=== PATIENT | female | born 1940 | race Caucasian/White ===

== ENCOUNTER 2019-10-05 00:39 | Emergency (ER) | payer MEDICARE ==
[2019-10-05] MEDS ORDERED: OXYMETAZOLINE HCL 0.05% NASAL SPRAY 15 ML BOTTLE NASL ONE (01:08)
[2019-10-05] MEDS ORDERED: TRANEXAMIC ACID INJ/PF 1,000 MG/10 ML SDV TOP PRN (02:29)
--- NOTE | 2019-10-05 02:53 | ER Document Report ---
ED General - General Chief Complaint: Nose Bleed Stated Complaint: NOSEBLEED Time Seen by Provider: 10/05/19 01:08 Primary Care Provider: MAIKEL BAEZ DO [ASSOCIATE] - 10/06/19 TRAVEL OUTSIDE OF THE [place] IN LAST 30 DAYS: No - HPI Notes: Patient is an 79-year-old female with history of COPD and hypertension who presents by EMS for nosebleed. Patient was given TXA topically which did improve her nosebleed at the time. Patient states that the bleeding was pouring into the back of her throat. She is not on any blood thinning medications. Denies any injury. She is otherwise feeling well and has been able to eat and drink without difficulty. She is urinating normally. Denies any headache, fever, head injury, neck pain, changes in vision/speech/mentation/hearing, URI, sore throat, chest pain, palpitations, syncope, cough, shortness of breath, wheeze, dyspnea, abdominal pain, nausea/vomiting/diarrhea, urinary retention, dysuria, hematuria, loss of control of bowel or bladder, numbness/tingling, muscle paralysis/weakness, or rash. - Related Data Allergies/Adverse Reactions: ciprofloxacin [From Cipro] Allergy (Verified 10/05/19 00:43) Past Medical History - Social History Smoking Status: Never Smoker Chew tobacco use (# tins/day): No Frequency of alcohol use: None Drug Abuse: None Family History: Reviewed & Not Pertinent Patient has suicidal ideation: No Patient has homicidal ideation: No - Past Medical History Cardiac Medical History: Reports: Hx Hypercholesterolemia, Hx Hypertension Pulmonary Medical History: Reports: Hx COPD Past Surgical History: Reports: Hx Appendectomy, Hx Bowel Surgery, Hx Cholec ystectomy, Hx Hysterectomy, Hx Orthopedic Surgery, Hx Thyroid Surgery, Hx Tonsillectomy Review of Systems - Review of Systems -: Yes All other systems reviewed and negative Physical Exam - Vital signs Vitals: Temp Pulse Resp BP Pulse Ox 97.8 F 88 16 144/61 H 100 10/05/19 00:43 10/05/19 00:43 10/05/19 00:43 10/05/19 00:43 10/05/19 00:43 - Notes Notes: PHYSICAL EXAMINATION: GENERAL: Well-appearing, well-nourished and in no acute distress. HEAD: Atraumatic, normocephalic. EYES: Pupils equal round and reactive to light, extraocular movements intact, sclera anicteric, conjunctiva are normal. ENT: EAC clear b/l. TM's intact b/l without erythema, fluid, or perforation. Rt nare has clot formation. Left nare clear. Scant blood to the oropharynx. No tonsilar hypertrophy or erythema. Moist mucous membranes. No sinus tenderness. NECK: Normal range of motion, supple without lymphadenopathy LUNGS: Breath sounds clear to auscultation bilaterally and equal. No wheezes rales or rhonchi. HEART: Regular rate and rhythm without murmurs, rubs, gallops. NEUROLOGICAL: Cranial nerves grossly intact. Normal speech, normal gait. Normal sensory, motor exams PSYCH: Normal mood, normal affect. SKIN: Warm, Dry, normal turgor, no rashes or lesions noted. Course - Re-evaluation Re-evalutation: 10/05/19 02:48 Patient is afebrile, well-hydrated, 79-year-old female who presents with epistasis to the right nare. Vitals are acceptable. PE is otherwise unremarkable. Patient is nontoxic-appearing and is able to tolerate p.o. without difficulty. The clot was removed and patient immediately started having bleeding in the back of her throat and out of her right nare. She was constantly spitting up blood. We tried Afrin with gauze packing which did not improve her bleeding. We then soaked the 7.5 Rhino Rocket with TXA and applied to the right nare successfully without any complications. Patient tolerated the procedure well. After about 15 minutes patient has had resolution of the bleeding to the oropharynx and she is feeling much better. She is no longer spitting out blood. We will continue to monitor. And otherwise have low suspicion for any other systemic or emergent condition at this time. The Rhino Rocket will remain in place and patient will contact ENT tomorrow to schedule follow-up appointment. She is to return to the ED with any other worsening/concerning symptoms. Patient is in agreement. 10/05/19 04:16 Pt is feeling well w/o any significant bleeding since placement. She is to call ENT when they open, return if needed. Reviewed with Dr. Cox who is in agreement with dispo/plan. - Vital Signs Vital signs: Temp Pulse Resp BP Pulse Ox 97.8 F 88 16 144/61 H 100 10/05/19 00:43 10/05/19 00:43 10/05/19 00:43 10/05/19 00:43 10/05/19 00:43 Procedures - Nosebleed Procedure Right Location: Anterior - single nare at this time Supplies used: Rhinorocket - with TXA Discharge - Discharge Clinical Impression: Epistaxis Condition: Stable Disposition: HOME, SELF-CARE Instructions: Nosebleed Instructions ([facility]) Additional Instructions: Maintain adequate fluid intake Leave Rocket in place F/u: with your PCM in 3-5 days for a recheck Call ENT in the morning to schedule an appointment for follow-up Return to the ED with any fever, dizziness, tinnitus, headaches, worsening pain, chest pain, palpitations, syncope, neck pain/stiffness, shortness of breath, wheezing, drooling, trouble swallowing/breathing, abdominal pain, n/v/d, rash, or worsening/concerning symptoms otherwise. Forms: Elevated Blood Pressure Referrals: MAIKEL BAEZ DO [ASSOCIATE] - 10/06/19
[2019-10-05 05:52] VITALS: BP 157/59
== END 2019-10-05 04:32 | disposition home or self-care (01) ==
LOC: ER 00:39
DX: R04.0 Epistaxis (principal); J44.9 Chronic obstructive pulmonary disease, unspecified; I10 Essential (primary) hypertension; Z88.1 Allergy status to other antibiotic agents
CPT/HCPCS: 30901; A9270; 99283; J3490

== ENCOUNTER → 2019-11-08 | Outpatient (CLI) | payer MEDICARE ==
--- NOTE | 2019-11-08 16:48 | RADIOLOGY REPORT (SQ) ---
EXAM DESCRIPTION: CAROTID DOPPLER COMPLETED DATE/TIME: 11/08/2019 4:15 pm REASON FOR STUDY: BRUIT R09.89 OTH SYMPTOMS AND SIGNS INVOLVING THE CIRC AND RESP SY COMPARISON: None. TECHNIQUE: Grayscale ultrasound, Doppler velocity and spectra, and color Doppler images acquired of the extra-cranial carotid and vertebral arteries. Images stored on PACS. LIMITATIONS: None. FINDINGS: RIGHT CAROTID CCA Velocities: Within normal limits. ICA Velocities Peak systolic 161 cm/s. End diastolic 55 cm/s. Proximal ICA/CCA peak systolic ratio 2.47. There is complex calcified plaque in the carotid bulb and proximal ICA. LEFT CAROTID CCA Velocities: Within normal limits. ICA Velocities Peak systolic 116 cm/s. End diastolic 33 cm/s. Proximal ICA/CCA peak systolic ratio 1.34. Complex plaque in the carotid bulb and proximal ICA. VERTEBRAL ARTERIES: Antegrade flow. Normal waveforms. SUBCLAVIAN ARTERIES: No finding. OTHER: No other significant finding. IMPRESSION: 50 to 69% stenosis in the right internal carotid artery. No hemodynamically significant stenosis on the left. COMMENT: Quality ID #[id number]: Velocity criteria are extrapolated from the diameter data as defined by t he Society of Radiologists in Ultrasound Consensus Conference. Radiology 2003: 229; 340-346. TECHNICAL DOCUMENTATION: JOB ID: [id number] [employer]- All Rights Reserved Reading location - IP/workstation name: [email or web address]
== END ==
LOC: SP 10:39
PROVIDERS: ATTEND Physician Assistant
DX: I65.21 Occlusion and stenosis of right carotid artery (principal); R09.89 Other specified symptoms and signs involving the circulatory and respiratory systems
CPT/HCPCS: 93880

== ENCOUNTER → 2020-02-19 | Outpatient (CLI) | payer MEDICARE ==
[2020-02-19 17:08] LABS: ALBUMIN 4.4 g/dL (3.5-5.0); ALKALINE PHOSPHATASE 129 U/L (38-126); ANION GAP 12 (5-19); ASPARTATE AMINO TRANSFERASE 24 U/L (14-36); BILIRUBIN,TOTAL 0.4 mg/dL (0.2-1.3); BLOOD UREA NITROGEN 13 mg/dL (7-20); CALCIUM 9.5 mg/dL (8.4-10.2); CARBON DIOXIDE 21 mmol/L (22-30); CHLORIDE 105 mmol/L (98-107); GLUCOSE 101 mg/dL (75-110); POTASSIUM 4.7 mmol/L (3.6-5.0); TOTAL PROTEIN 7.2 g/dL (6.3-8.2); TRIGLYCERIDES 300 mg/dL (<150)
[2020-02-19 17:19] LABS: DIRECT LDL 306 mg/dL (<100)
[2020-02-19 17:23] LABS: CHOLESTEROL 419.79 mg/dL (0-200)
== END ==
LOC: OD 15:37
PROVIDERS: ATTEND Physician Assistant
DX: E78.00 Pure hypercholesterolemia, unspecified (principal); I10 Essential (primary) hypertension; Z79.899 Other long term (current) drug therapy
CPT/HCPCS: 36415; 80048; 80061; 80076

== ENCOUNTER 2020-06-10 09:29 | Emergency (ER) | payer MEDICARE ==
--- NOTE | 2020-06-10 10:32 | RADIOLOGY REPORT (SQ) ---
EXAM DESCRIPTION: CHEST SINGLE VIEW IMAGES COMPLETED DATE/TIME: 06/10/2020 10:12 am REASON FOR STUDY: SOB COMPARISON: None. EXAM PARAMETERS: NUMBER OF VIEWS: One view. TECHNIQUE: Single frontal radiographic view of the chest acquired. RADIATION DOSE: NA LIMITATIONS: None. FINDINGS: LUNGS AND PLEURA: No opacities, masses or pneumothorax. No pleural effusion. MEDIASTINUM AND HILAR STRUCTURES: No masses. Contour normal. HEART AND VASCULAR STRUCTURES: Heart normal in size. Vascular calcification. BONES: No acute findings. Subchondral cystic change at the right proximal humerus. HARDWARE: None in the chest. OTHER: No other significant finding. IMPRESSION: NO ACUTE RADIOGRAPHIC FINDING IN THE CHEST. TECHNICAL DOCUMENTATION: JOB ID: [id number] 2010 [employer]- All Rights Reserved Reading location - IP/workstation name: [email or web address]
[2020-06-10 10:58] LABS: ABSOLUTE BASOPHILS # (AUTO) 0.1 10^3/uL (0.0-0.2); ABSOLUTE EOSINOPHILS # (AUTO) 0.1 10^3/uL (0.0-0.6); ABSOLUTE LYMPHOCYTES (AUTO) 1.2 10^3/uL (0.5-4.7); ABSOLUTE MONOCYTES (AUTO) 0.9 10^3/uL (0.1-1.4); ABSOLUTE NEUT (AUTO) 9.1 10^3/uL (1.7-8.2); BASOPHILS % (AUTO) 0.8 % (0-2); EOSINOPHILS % (AUTO) 0.7 % (0-6); HEMATOCRIT 32.1 % (36.0-47.0); HEMOGLOBIN 10.7 g/dL (12.0-15.5); LYMPHOCYTES % (AUTO) 10.8 % (13-45); MEAN CORPUSCULAR HGB CONC 33.3 g/dL (32.0-36.0); MEAN CORPUSCULAR VOLUME 84 fl (80-97); MONOCYTES % (AUTO) 7.7 % (3-13); PLATELET COUNT 227 10^3/uL (150-450); RED BLOOD COUNT 3.82 10^6/uL (3.72-5.28); RED CELL DISTRIBUTION WIDTH 14.3 % (11.5-14.0); TOTAL CELLS COUNTED % (AUTO) 100 %; WHITE BLOOD COUNT 11.4 10^3/uL (4.0-10.5)
[2020-06-10 11:20] LABS: ALBUMIN 4.3 g/dL (3.5-5.0); ALKALINE PHOSPHATASE 124 U/L (38-126); ANION GAP 13 (5-19); ASPARTATE AMINO TRANSFERASE 26 U/L (14-36); BILIRUBIN,DIRECT 0.3 mg/dL (0.0-0.4); BILIRUBIN,TOTAL 0.8 mg/dL (0.2-1.3); BLOOD UREA NITROGEN 17 mg/dL (7-20); CALCIUM 9.8 mg/dL (8.4-10.2); CARBON DIOXIDE 21 mmol/L (22-30); CHLORIDE 104 mmol/L (98-107); CREATINE KINASE 69 U/L (30-135); GLUCOSE 124 mg/dL (75-110); TOTAL PROTEIN 7.6 g/dL (6.3-8.2)
[2020-06-10 11:32] LABS: CREATINE KINASE MB < 0.22 ng/mL (<4.55); TROPONIN I < 0.012 ng/mL
--- NOTE | 2020-06-10 14:48 | ER Document Report ---
Entered by KARLEY LEAL SCRIBE 06/10/20 1216 Acting as scribe for:PEPE MCKEON MD ED General - General Chief Complaint: Shortness Of Breath Stated Complaint: SHORTNESS OF BREATH/FEVER Time Seen by Provider: 06/10/20 11:13 Primary Care Provider: TEDDY CRISTINA DO [Primary Care Provider] - Follow up as needed Information source: Patient Notes: This 79 year old female patient presents to the emergency department today with a subjective fever for the past x4 days. Patient states she began to have chest pain x2 days ago and began sweating through her clothes yesterday. Patient states she now has general body aches and a cough. Patient reports history of COPD, HTN, high cholesterol, and borderline DM. Patient reports history of Asthma, uses her nebulizer every morning and chronic constipation, which she takes MiraLax for everyday. Patient reports loss of taste and denies throat pain or history of heart attacks. Patient states she does not have any known covid exposure and is social distancing. TRAVEL OUTSIDE OF THE [place] IN LAST 30 DAYS: No - Related Data Allergies/Adverse Reactions: adhesive Allergy (Intermediate, Verified 10/13/19 10:58) RASH AND BLISTERING WITH CONTACT. ciprofloxacin [From Cipro] Allergy (Verified 10/13/19 10:58) Past Medical History - General Information source: Patient - Social History Smoking Status: Never Smoker Cigarette use (# per day): No Family History: Malignancy, CAD, COPD, Hyperlipidemia, Reviewed & Not Pertinent - Past Medical History Cardiac Medical History: Reports: Hx Congestive Heart Failure, Hx Hypercholesterolemia, Hx Hypertension, Hx Heart Murmur Denies: Hx Heart Attack Pulmonary Medical History: Reports: Hx Asthma - MEDICATED/LAST HOSPITALIZATION 11/2016 PNEUMONIA/CHF, Hx Bronchitis, Hx COPD, Hx Pneumonia Endocrine Medical History: Reports: Hx Diabetes Mellitus Type 2 - When necessary insulin for steroid induced hypoglycemia. GI Medical History: Reports: Hx Diverticulitis, Hx Gastroesophageal Reflux Disease, Hx Irritable Bowel Musculoskeletal Medical History: Reports Hx Arthritis Psychiatric Medical History: Reports: Hx Depression - Some appropriate transient depression after her son 2 years ago. Past Surgical History: Reports: Hx Abdominal Surgery - 3 ex-laops with lysis of adhesions for SBO, Hx Appendectomy, Hx Bowel Surgery, Hx Cholecystectomy, Hx Gynecologic Surgery - hysterectomy, Hx Hysterectomy, Hx Orthopedic Surgery - Right hand, Hx Thyroid Surgery, Hx Tonsillectomy, Other - Partial colectomy, Exploratory laparoscopy with lysis of adhesions 3 - Immunizations Hx Diphtheria, Pertussis, Tetanus Vaccination: Yes Hx Pneumococcal Vaccination: 10/18/08 Review of Systems - Review of Systems Constitutional: See HPI, Diaphoresis, Fever, Other - body aches EENT: See HPI, Other - loss of taste. denies: Throat pain Cardiovascular: See HPI, Chest pain Respiratory: See HPI, Cough Gastrointestinal: No symptoms reported Genitourinary: No symptoms reported Female Genitourinary: No symptoms reported Musculoskeletal: No symptoms reported Skin: No symptoms reported Hematologic/Lymphatic: No symptoms reported Neurological/Psychological: No symptoms reported -: Yes All other systems reviewed and negative Physical Exam - Vital signs Vitals: Temp Pulse Resp BP Pulse Ox 99.4 F 110 H 20 129/49 H 99 06/10/20 09:38 06/10/20 09:38 06/10/20 09:38 06/10/20 09:38 06/10/20 09:38 - General General appearance: Appears well, Alert - HEENT Head: Normocephalic, Atraumatic Eyes: Normal Extraocular movements intact: Yes Pupils: PERRL Neck: Supple - Respiratory Respiratory status: No respiratory distress Chest status: Nontender Breath sounds: Normal Chest palpation: Normal - Cardiovascular Rhythm: Regular Heart sounds: Normal auscultation, S1 appreciated, S2 appreciated Murmur: No - Abdominal Inspection: Normal, Other - Soft Distension: No distension Bowel sounds: Normal Tenderness: Nontender - Extremities General upper extremity: Normal inspection. No: Edema General lower extremity: Normal inspection. No: Edema - Neurological Neuro grossly intact: Yes Cognition: Normal Orientation: AAOx4 Speech: Normal - Psychological Associated symptoms: Normal affect, Normal mood - Skin Skin Temperature: Warm Skin Moisture: Dry Skin Color: Normal Course - Re-evaluation Re-evalutation: 06/10/20 14:41 Patient is resting comfortably not showing any signs of distress at this time. Patient does admit that she still have myalgias at this time. I recommended to her to take Tylenol and if Tylenol was not effective that she should take [id number] ibuprofen at 600 mg 3 times a day if needed with meals. 06/10/20 14:44 Inasmuch as patient has myalgias and fever over the past week and and loss of taste the symptoms can be associated with COVID-19 virus therefore patient is been tested prior to discharge from the ED today. Patient understands to quarantine until she gets further instructions based on her lab test results. - Vital Signs Vital signs: Temp Pulse Resp BP Pulse Ox 99.4 F 110 H 24 H 112/54 L 96 06/10/20 09:38 06/10/20 09:38 06/10/20 13:00 06/10/20 13:00 06/10/20 13:00 06/10/20 14:41 Vital signs are stable no acute process pulse ox 96% - Laboratory Result Diagrams: 06/10/20 10:40 06/10/20 10:40 Laboratory results interpreted by me: 06/10/20 06/10/20 10:40 10:40 WBC 11.4 H Hgb 10.7 L Hct 32.1 L RDW 14.3 H Lymph % (Auto) 10.8 L Absolute Neuts (auto) 9.1 H Seg Neutrophils % 80.0 H Carbon Dioxide 21 L Glucose 124 H 06/10/20 14:42 No insignificant abnormalities noted on the laboratory survey. Patient's troponin has been negative at 0.012 flat across x2 over several hours. - Diagnostic Test Radiology reviewed: Image reviewed, Reports reviewed Radiology results interpreted by me: 06/10/20 14:43 Chest x-ray shows no acute process no infiltrate - EKG Interpretation by Me Additional EKG results interpreted by me: 06/10/20 14:43 Twelve-lead EKG shows a normal sinus rhythm rate of 88 left anterior fascicular block and LVH noted by voltage criteria. No acute STEMI. Discharge - Discharge Clinical Impression: Epidemic myalgia, Suspected COVID-19 virus infection, Chest pain, COPD (chronic obstructive pulmonary disease), Post viral syndrome Condition: Stable Disposition: HOME, SELF-CARE Instructions: Viral Syndrome ([facility]), Fever ([facility]), Acetaminophen, COVID-19 Guidance for Persons Under Investigation Additional Instructions: Viral Syndrome The physician has diagnosed a viral infection. Viruses not only cause "colds," but can cause many different symptoms including generalized aching, fever, headache, cough, diarrhea, nausea, vomiting, and fatigue. The treatment, for the most part, is simply relief of symptoms. This means that antibiotics are usually not given. Rest, fluids, pain medications and, occasionally, medication for the specific symptoms that are most bothersome will be prescribed. Use good handwashing to avoid passing the virus to others. Shared toys should be cleaned with disinfectant. Clean the toilets, sinks, and counter surfaces in bathrooms. Launder clothing in hot water. Contact the physician if you develop any new or unusual symptoms such as severe headache, stiff neck, high fever, chest pain, productive cough, or shortness of breath. You should be rechecked if you don't see marked improvement within seven to 10 days. Consider ibuprofen at 600 mg 3 times a day with meals if needed for pain myalgias fever or chills. Continue your same other medications you are taking for your other illnesses including a COPD with treatments. Await test results from the COVID testing done today and continue to quarantine until further instructions. Referrals: TEDDY CRISTINA, DO [Primary Care Provider] - Follow up as needed I personally performed the services described in the documentation, reviewed and edited the documentation which was dictated to the scribe in my presence, and it accurately records my words and actions.
[2020-06-10 15:04] VITALS: BP 125/50
--- NOTE | 2020-06-10 19:41 | EKG REPORT ---
SEVERITY:- ABNORMAL ECG - SINUS RHYTHM LEFT ANTERIOR FASCICULAR BLOCK LVH WITH SECONDARY REPOLARIZATION ABNORMALITY : Confirmed by: Zulay Rodas MD 10-Jun-2020 19:40:58
== END 2020-06-10 15:05 | disposition home or self-care (01) ==
LOC: ER 09:29
DX: J44.9 Chronic obstructive pulmonary disease, unspecified (principal); M79.10 Myalgia, unspecified site; R07.9 Chest pain, unspecified; B34.9 Viral infection, unspecified; R06.02 Shortness of breath; R50.9 Fever, unspecified; R05 Cough; R43.9 Unspecified disturbances of smell and taste; E78.00 Pure hypercholesterolemia, unspecified; J45.909 Unspecified asthma, uncomplicated; Z88.1 Allergy status to other antibiotic agents; I11.0 Hypertensive heart disease with heart failure; I50.9 Heart failure, unspecified; Z20.828 Contact with and (suspected) exposure to other viral communicable diseases
CPT/HCPCS: 93005; 99285; 36415; 82553; 82550; 85025; 80053; 84484; 71045; 93010; U0003; C9803; 87635

== ENCOUNTER 2020-06-16 23:14 | Inpatient (IN) | payer MEDICARE ==
[2020-06-16] MEDS ORDERED: PROMETHAZINE HCL INJ 25 MG/1 ML VIAL IV ONE (23:50)
[2020-06-16] MEDS ORDERED: MORPHINE SULFATE 10 MG/ML INJ IV ONE (23:50)
[2020-06-16] MEDS ORDERED: NORMAL SALINE 1000 ML 1,000 ML IV ONE (23:51)
--- NOTE | 2020-06-16 23:57 | ER Document Report ---
ED GI/ - General Chief Complaint: Abdominal Pain Stated Complaint: ABD PAIN Time Seen by Provider: 06/16/20 23:43 Primary Care Provider: TEDDY CRISTINA DO [Primary Care Provider] - Follow up as needed Mode of Arrival: Medic Information source: Patient, Emergency Med Personnel Notes: 79-year-old female arrives by EMS after having acute onset this afternoon of vomiting left lower and left upper abdominal pain quite severe 8-10 out of 10. She has partially eaten food in her vomitus. She last ate around 1600. Patient denies any diarrhea. Denies any bowel movement today. Her last bowel movement was yesterday. She has had at least 5 surgeries for SBO at her last with with Dr. Shabazz at [facility]. This was an late 2018. Her abdomen is mildly distended. Her abdomen also has multiple surgical scars. Patient had a negative coronavirus COVID-19 test done on Wednesday 6 days ago because she was running fever and this was negative. TRAVEL OUTSIDE OF THE [place] IN LAST 30 DAYS: No - HPI Patient complains to provider of: Abdominal pain, Vomiting Onset: This afternoon Timing/Duration: Sudden, Persistent, Worse Quality of pain: Achy Severity at maximum: Severe Severity in ED: Severe Pain Level: 4 - Related Data Allergies/Adverse Reactions: adhesive Allergy (Intermediate, Verified 10/13/19 10:58) RASH AND BLISTERING WITH CONTACT. ciprofloxacin [From Cipro] Allergy (Verified 10/13/19 10:58) Past Medical History - General Information source: Patient - Social History Smoking Status: Never Smoker Cigarette use (# per day): No Chew tobacco use (# tins/day): No Smoking Education Provided: No Frequency of alcohol use: None Drug Abuse: None Lives with: Family Family History: Malignancy, CAD, COPD, Hyperlipidemia, Reviewed & Not Pertinent Patient has suicidal ideation: No Patient has homicidal ideation: No - Past Medical History Cardiac Medical History: Reports: Hx Congestive Heart Failure, Hx Hypercholesterolemia, Hx Hypertension, Hx Heart Murmur Denies: Hx Heart Attack Pulmonary Medical History: Reports: Hx Asthma - MEDICATED/LAST HOSPITALIZATION 11/2016 PNEUMONIA/CHF, Hx Bronchitis, Hx COPD, Hx Pneumonia Denies: Hx Tuberculosis Neurological Medical History: Denies: Hx Cerebrovascular Accident, Hx Seizures Endocrine Medical History: Reports: Hx Diabetes Mellitus Type 2 - When necessary insulin for steroid induced hypoglycemia. Renal/ Medical History: Denies: Hx Peritoneal Dialysis GI Medical History: Reports: Hx Diverticulitis, Hx Gastroesophageal Reflux Disease, Hx Irritable Bowel. Denies: Hx Cirrhosis, Hx Hepatitis, Hx Hiatal Hernia, Hx Ulcer - HX OF DIVERTICULITIS/IBS Musculoskeletal Medical History: Reports Hx Arthritis Psychiatric Medical History: Reports: Hx Depression - Some appropriate transient depression after her son 2 years ago. Denies: Hx Anxiety - Patient denies history of anxiety Infectious Medical History: Denies: Hx Hepatitis Past Surgical History: Reports: Hx Abdominal Surgery - 3 ex-laops with lysis of adhesions for SBO, Hx Appendectomy, Hx Bowel Surgery, Hx Cholecystectomy, Hx Gynecologic Surgery - hysterectomy, Hx Hysterectomy, Hx Orthopedic Surgery - Right hand, Hx Thyroid Surgery, Hx Tonsillectomy, Other - Partial colectomy, Ex ploratory laparoscopy with lysis of adhesions 3. Denies: Hx Mastectomy, Hx Open Heart Surgery, Hx Pacemaker - Immunizations Hx Diphtheria, Pertussis, Tetanus Vaccination: Yes Hx Pneumococcal Vaccination: 10/18/08 Review of Systems - Review of Systems Constitutional: See HPI, Malaise, Weakness, Recent illness EENT: No symptoms reported Cardiovascular: No symptoms reported Respiratory: No symptoms reported Gastrointestinal: See HPI, Abdomen distended, Abdominal pain, Nausea, Vomiting Genitourinary: No symptoms reported Female Genitourinary: No symptoms reported Musculoskeletal: No symptoms reported Skin: No symptoms reported Hematologic/Lymphatic: No symptoms reported Neurological/Psychological: No symptoms reported Physical Exam - Vital signs Vitals: Resp 29 H 06/16/20 23:24 - HEENT Head: Normocephalic, Atraumatic Eyes: Normal Pupils: PERRL - Respiratory Respiratory status: No respiratory distress Chest status: Nontender Breath sounds: Normal Chest palpation: Normal - Cardiovascular Rhythm: Regular Heart sounds: Normal auscultation Murmur: No - Abdominal Inspection: Healed incision, Morbidly Obese Distension: Distended Bowel sounds: Hypoactive Tenderness: Tender Organomegaly: No organomegaly - Rectal Hemorrhoids: Other - erred - Genitourinary Bimanuel exam: Other - deferred - Back Back: Normal - Extremities General upper extremity: Normal inspection General lower extremity: Normal inspection - Neurological Neuro grossly intact: Yes Cognition: Normal Orientation: AAOx4 [place] Coma Scale Eye Opening: Spontaneous Jozef Coma Scale Verbal: Oriented Jozef Coma Scale Motor: Obeys Commands Jozef Coma Scale Total: 15 Speech: Normal Motor strength normal: LUE, RUE, LLE, RLE Sensory: Normal - Psychological Associated symptoms: Anxious - Skin Skin Temperature: Warm Skin Moisture: Dry Course - Vital Signs Vital signs: Temp Pulse Resp BP Pulse Ox 98.8 F 22 H 124/59 L 98 06/16/20 23:27 06/17/20 01:01 06/17/20 01:01 06/17/20 00:01 - Laboratory Result Diagrams: 06/17/20 00:10 06/17/20 00:10 Laboratory results interpreted by me: 06/17/20 06/17/20 00:10 00:10 WBC 15.2 H Hgb 11.4 L Hct 34.6 L Lymph % (Auto) 11.7 L Absolute Neuts (auto) 12.4 H Seg Neutrophils % 81.2 H Chloride 111 H Carbon Dioxide 20 L BUN 21 H Glucose 117 H Calcium 10.7 H Alkaline Phosphatase 144 H - Diagnostic Test Radiology reviewed: Reports reviewed - SBO dilated loops on left upper left lower quadrant - EKG Interpretation by Me EKG shows normal: Sinus rhythm Rate: Normal Rhythm: NSR - 83 bpm with sinus rhythm and LVH with ISV CD LAD and secondary repolarization no T wave inversion. Critical Care Note - Critical Care Note Comments: I discussed this case with Dr. Whatley. This was at 0200 and he advised NG tube which was done already and also consult him and admit under medicine. We therefore called Dr. Israel and he advised he will accept the patient but would like a consult for surgery. Discharge - Discharge Clinical Impression: SBO (small bowel obstruction), Consult for surgery Dr. Whatley Abdominal pain Qualifiers: Abdominal location: left lower quadrant Qualified Code(s): R10.32 - Left lower quadrant pain Vomiting Qualifiers: Vomiting type: unspecified Vomiting Intractability: unspecified Nausea presence: with nausea Qualified Code(s): R11.2 - Nausea with vomiting, unspecified Condition: Good Disposition: ADMITTED INPATIENT Additional Instructions: Transfer patient to medicine floor with consult for Dr. Whatley Referrals: TEDDY CRISTINA DO [Primary Care Provider] - Follow up as needed
--- NOTE | 2020-06-17 00:43 | RADIOLOGY REPORT (SQ) ---
CLINICAL INDICATION: sbo. TECHNIQUE: A single portable AP view was obtained of the chest at 0027 hours. COMPARISON: June 17, 2020. FINDINGS: The cardiomediastinal silhouette is normal. The lungs are grossly clear. No evidence of effusion or pneumothorax. Osteoarthritis. Laxity in the shoulders. IMPRESSION: No evidence of active intrathoracic disease. No adverse change
--- NOTE | 2020-06-17 00:43 | RADIOLOGY REPORT (SQ) ---
CLINICAL INDICATION: n/v sbo. TECHNIQUE: 2 portable AP supine image(s) of the abdomen. 0030 hours COMPARISON: None available. FINDINGS: A nonspecific gas pattern is identified. No evidence of high grade obstruction. Moderate hard stool within the colon. Osteoarthritis. Remote postsurgical change. IMPRESSION: No evidence of obstruction, the reported clinical concern.
[2020-06-17 00:46] LABS: INTERNATIONAL RATION (INR) 1.03; PARTIAL THROMBOPLASTIN TIME 29.2 SEC (23.5-35.8); PROTHROMBIN TIME 13.7 SEC (11.4-15.4)
[2020-06-17 00:47] LABS: ALBUMIN 4.4 g/dL (3.5-5.0); ALKALINE PHOSPHATASE 144 U/L (38-126); ANION GAP 11 (5-19); ASPARTATE AMINO TRANSFERASE 23 U/L (14-36); BILIRUBIN,DIRECT 0.2 mg/dL (0.0-0.4); BILIRUBIN,TOTAL 0.4 mg/dL (0.2-1.3); BLOOD UREA NITROGEN 21 mg/dL (7-20); CALCIUM 10.7 mg/dL (8.4-10.2); CARBON DIOXIDE 20 mmol/L (22-30); CHLORIDE 111 mmol/L (98-107); GLUCOSE 117 mg/dL (75-110); TOTAL PROTEIN 7.7 g/dL (6.3-8.2)
--- NOTE | 2020-06-17 00:47 | EKG REPORT ---
SEVERITY:- ABNORMAL ECG - SINUS RHYTHM LVH WITH IVCD, LAD AND SECONDARY REPOL ABNRM : Confirmed by: Zulay Rodas MD 17-Jun-2020 00:46:51
[2020-06-17 00:48] LABS: ABSOLUTE BASOPHILS # (AUTO) 0.1 10^3/uL (0.0-0.2); ABSOLUTE EOSINOPHILS # (AUTO) 0.1 10^3/uL (0.0-0.6); ABSOLUTE LYMPHOCYTES (AUTO) 1.8 10^3/uL (0.5-4.7); ABSOLUTE MONOCYTES (AUTO) 0.9 10^3/uL (0.1-1.4); ABSOLUTE NEUT (AUTO) 12.4 10^3/uL (1.7-8.2); BASOPHILS % (AUTO) 0.4 % (0-2); EOSINOPHILS % (AUTO) 0.9 % (0-6); HEMATOCRIT 34.6 % (36.0-47.0); HEMOGLOBIN 11.4 g/dL (12.0-15.5); LYMPHOCYTES % (AUTO) 11.7 % (13-45); MEAN CORPUSCULAR HEMOGLOBIN 27.5 pg (27.0-33.4); MEAN CORPUSCULAR HGB CONC 32.8 g/dL (32.0-36.0); MEAN CORPUSCULAR VOLUME 84 fl (80-97); MONOCYTES % (AUTO) 5.8 % (3-13); PLATELET COUNT 343 10^3/uL (150-450); RED BLOOD COUNT 4.14 10^6/uL (3.72-5.28); RED CELL DISTRIBUTION WIDTH 13.9 % (11.5-14.0); SEGMENTED NEUTROPHILS % (AUTO) 81.2 % (42-78); TOTAL CELLS COUNTED % (AUTO) 100 %; WHITE BLOOD COUNT 15.2 10^3/uL (4.0-10.5)
--- NOTE | 2020-06-17 02:00 | RADIOLOGY REPORT (SQ) ---
EXAM DESCRIPTION: [facility]: CT ABDOMEN PELVIS WITH IV CONTRAST CLINICAL HISTORY: 79 years Female; vomit sbo; TECHNIQUE: CT of the abdomen and pelvis using intravenous contrast. All CT scans at this facility use dose modulation, iterative reconstruction, and/or weight based dosing when appropriate to reduce radiation dose to as low as reasonably achievable. COMPARISON: CT 06/20/2019 FINDINGS: Abdomen: Stomach: Moderately distended with fluid. No surrounding edema. Liver:No focal lesions. No intrahepatic ductal distention. Gallbladder:Nondistended Pancreas:Within normal limits Spleen:Within normal limits Right kidney:No hydronephrosis. No focal lesion. Left kidney:No hydronephrosis. No focal lesion. Adrenal glands:Within normal limits Vascular structures:Within normal limits Pelvis: Small bowel: Multiple distended loops in the left abdomen, up to 3.7 cm diameter. There are scattered air-fluid levels. Distal small bowel is normal in caliber. Transition point is likely in the left lower quadrant. Colon: Proximal colonic fecal retention, but no significant distention. Sigmoid staple line is noted, without adjacent edema or extraluminal fluid/air. No free intraperitoneal fluid or air. Bones: No acute bone findings. Bladder: Unremarkable. No pelvic mass or adenopathy. IMPRESSION: 1. Multiple distended small bowel loops, consistent with at least a partial small bowel obstruction. Transition point is likely in the left lower quadrant. 2. No perforation or abscess.
[2020-06-17] MEDS ORDERED: HYDROMORPHONE HCL INJ/PF 2 MG/ML AMPULE IV ONE (02:13)
[2020-06-17] MEDS ORDERED: ONDANSETRON HCL INJ/PF 4 MG/2 ML SDV IV ONE (02:13)
[2020-06-17 02:39] LABS: APPEARANCE,URINE SLIGHTLY-CLOUDY; BILIRUBIN,URINE NEGATIVE (NEGATIVE); COLOR,URINE YELLOW; GLUCOSE, URINE NEGATIVE (NEGATIVE); KETONES,URINE NEGATIVE (NEGATIVE); LEUKOCYTE ESTERASE,URINE SMALL (NEGATIVE); NITRITE,URINE NEGATIVE (NEGATIVE); PROTEIN,URINE NEGATIVE (NEGATIVE); URINE SPECIFIC GRAVITY 1.029; UROBILINOGEN,URINE NEGATIVE mg/dL (<2.0)
[2020-06-17] MEDS ORDERED: NORMAL SALINE 1000 ML 1,000 ML IV PRN (02:47)
[2020-06-17] MEDS ORDERED: DEXTROSE 50%-WATER 25 GM/50 ML DISP.SYRIN IV PRN ×2 (02:47)
[2020-06-17] MEDS ORDERED: TEMAZEPAM 7.5 MG CAPSULE PO PRN (02:47)
[2020-06-17] MEDS ORDERED: DEXTROSE 40% GEL 15 GM TUBE PO PRN ×2 (02:47)
[2020-06-17] MEDS ORDERED: GLUCAGON,HUMAN RECOMB 1 MG INJ SUBCUT PRN (02:47)
[2020-06-17] MEDS ORDERED: ACETAMINOPHEN 325 MG TABLET PO PRN (02:47)
[2020-06-17] MEDS ORDERED: IPRATROPIUM/ALBUTEROL 0.5-2.5 MG/3 ML AMPUL NEB PRN (02:47)
--- NOTE | 2020-06-17 03:21 | PDOC CONSULTATION ---
Consultation Consult Date: 06/17/20 Attending physician:: DUKE GAONA JR Provider Consulted: YUVAL MOLINA Consult reason:: Small bowel obstruction History of Present Illness Admission Date/PCP: 06/17/20 02:27 TEDDY CRISTINA DO History of Present Illness: MONICA ALBERTO is a 79 year old female Presents emergency department via ground rescue complaining of several day history of abdominal pain, nausea vomiting. Last bowel movement yesterday. Symptoms are similar to multiple previous bowel obstructions. Patient was found on acute abdominal series to have stool in the right colon. CT scan of the abdomen and pelvis with IV and oral contrast demonstrated dilated loops of small bowel, fecalization of the mid small bowel, stool in the right and left colon as well as air; there is decompressed small bowel distally consistent with partial small bowel obstruction. Patient has had multiple exploratory laparotomies including 2008, 2010 2016 and 2018 in [place], [facility], in [facility]. She is also had a upper partial colon resection likely sigmoid. She is uncertain whether she has abdominal wall mesh. COVID status 6 days ago negative. In the emergency department she had a nasogastric tube inserted with return of 800 cc of fluid. She is admitted to the medicine service with surgery consulting Past Medical History Cardiac Medical History: Reports: Congestive Heart Failure, Hyperlipidema, Hypertension, Heart Murmur Denies: Myocardial Infarction Pulmonary Medical History: Reports: Asthma - MEDICATED/LAST HOSPITALIZATION 11/2016 PNEUMONIA/CHF, Bronchitis, Chronic Obstructive Pulmonary Disease (COPD), Pneumonia Denies: Tuberculosis Neurological Medical History: Denies: Seizures Endocrine Medical History: Reports: Diabetes Mellitus Type 2 - When necessary insulin for steroid induced hypoglycemia. GI Medical History: Reports: Diverticulitis, Gastroesophageal Reflux Disease Denies: Cirrhosis, Hepatitis, Hiatal Hernia Musculoskeltal Medical History: Reports: Arthritis Psychiatric Medical History: Reports: Depression - Some appropriate transient depression after her son 2 years ago. Hematology: Reports: Anemia - NO CURRENT MEDS Denies: Sickle Cell Disease Past Surgical History Past Surgical History: Reports: Appendectomy, Cholecystectomy, Hysterectomy, Orthopedic Surgery - Right hand, Tonsillectomy, Other - Partial colectomy, Exploratory laparoscopy with lysis of adhesions 3 Denies: Amputation, Mastectomy, Pacemaker Social History Lives with: Family Smoking Status: Never Smoker Frequency of Alcohol Use: None Hx Recreational Drug Use: No Drugs: None Hx Prescription Drug Abuse: No Family History Family History: Malignancy, CAD, COPD, Hyperlipidemia, Reviewed & Not Pertinent Family History: Extensive family history of malignancies in 11 siblings including lung cancer, throat cancer, and breast cancer. Parental Family History Reviewed: Yes Children Family History Reviewed: No Sibling(s) Family History Reviewed.: No Medication/Allergy Home Medications: Aspirin [Adult Aspirin] 81 mg PO DAILY 11/14/18 Fluticasone Propionate [Flonase Nasal [place] 50 Mcg/[place] 16 gm] 1 spray NS DAILY 11/14/18 Melatonin [Melatonin 5 mg Tablet] 5 mg PO QHS 11/14/18 Multivitamin [Daily Multiple Vitamin] 1 each PO DAILY 11/14/18 Nitrofurantoin Macrocrystal [Macrodantin] 100 mg PO Q12 11/14/18 Ranitidine HCl 150 mg PO QHS 11/14/18 Cephalexin [Cephalexin 500 MG Tablet] 1 tab PO BID #14 tablet 06/20/19 Allergies/Adverse Reactions: adhesive Allergy (Intermediate, Verified 10/13/19 10:58) RASH AND BLISTERING WITH CONTACT. ciprofloxacin [From Cipro] Allergy (Verified 10/13/19 10:58) Review of Systems Constitutional: PRESENT: as per HPI Eyes: ABSENT: visual disturbances Ears: ABSENT: hearing changes Cardiovascular: PRESENT: orthropnea Respiratory: PRESENT: cough Gastrointestinal: PRESENT: other - Abdominal pain nausea vomiting bloating and distention Musculoskeletal: PRESENT: back pain Neurological: ABSENT: abnormal gait, abnormal speech, confusion, dizziness, focal weakness, syncope Psychiatric: ABSENT: anxiety, depression, homidical ideation, suicidal ideation Physical Exam Vital Signs: Temp Pulse Resp BP Pulse Ox 98.1 F 25 H 126/63 H 96 06/17/20 02:08 06/17/20 02:08 06/17/20 02:08 06/17/20 02:00 Intake & Output 06/15/20 06/16/20 06/17/20 06:59 06:59 06:59 Weight 63.796 kg General appearance: PRESENT: mild distress, other - Nasogastric tube in position draining pink tinged gastric contents Head exam: PRESENT: normocephalic Mouth exam: PRESENT: dry mucosa Neck exam: PRESENT: full ROM Respiratory exam: PRESENT: clear to auscultation [place]on Cardiovascular exam: PRESENT: RRR Pulses: PRESENT: normal carotid pulses, normal radial pulses, normal femoral pulses GI/Abdominal exam: PRESENT: distended, firm, other - Multiple scars consistent with previous surgery. Bowel sounds hypoactive Rectal exam: PRESENT: deferred Extremities exam: PRESENT: other - No edema Neurological exam: PRESENT: oriented to person, oriented to place, oriented to time, oriented to situation Psychiatric exam: PRESENT: appropriate affect Results Laboratory Results: 06/17/20 00:10 06/17/20 00:10 06/17/20 06/17/20 06/17/20 00:10 00:10 01:50 WBC 15.2 H RBC 4.14 Hgb 11.4 L Hct 34.6 L MCV 84 MCH 27.5 MCHC 32.8 RDW 13.9 Plt Count 343 Seg Neutrophils % 81.2 H Sodium 141.8 Potassium 4.0 Chloride 111 H Carbon Dioxide 20 L Anion Gap 11 BUN 21 H Creatinine 0.86 Est GFR ( Amer) > 60 Glucose 117 H Calcium 10.7 H Total Bilirubin 0.4 AST 23 Alkaline Phosphatase 144 H Total Protein 7.7 Albumin 4.4 Lipase 56.5 Urine Color YELLOW Urine Appearance SLIGHTLY-CLOUDY Urine pH 5.0 Ur Specific [place] 1.029 Urine Protein NEGATIVE Urine Glucose (UA) NEGATIVE Urine Ketones NEGATIVE Urine Blood SMALL H Urine Nitrite NEGATIVE Ur Leukocyte Esterase SMALL H Urine WBC (Auto) 19 Urine RBC (Auto) 1 Impressions: Abdomen/Pelvis CT 06/16/20 23:49 IMPRESSION: 1. Multiple distended small bowel loops, consistent with at least a partial small bowel obstruction. Transition point is likely in the left lower quadrant. 2. No perforation or abscess. KUB X-Ray 06/16/20 23:51 IMPRESSION: No evidence of obstruction, the reported clinical concern. Chest X-Ray 06/16/20 23:54 IMPRESSION: No evidence of active intrathoracic disease. No adverse change Assessment & Plan - Diagnosis (1) Small bowel obstruction Is this a current diagnosis for this admission?: Yes Plan: Impression: Acute small bowel obstruction, likely mid to distal small bowel, incomplete, with associated metabolic acidosis and dehydration; patient does not have an acute abdomen at this moment and does not need immediate exploration. History of multiple previous small bowel obstructions, some managed nonoperatively and some requiring lysis of adhesions. Plan: 1. N.p.o., nasogastric decompression, IV fluid resuscitation 2. If patient does not improve clinically, she understands she may require exploratory laparotomy lysis of adhesions which at her age, with previous history of multiple explorations, which would put her at increased risk for intraoperative and postoperative complications. She understands this. 3. We will follow patient closely with you. (3) GERD (gastroesophageal reflux disease) Qualifiers: Esophagitis presence: without esophagitis Qualified Code(s): K21.9 - Gastro-esophageal reflux disease without esophagitis (6) Hyperlipemia Qualifiers: Hyperlipidemia type: pure hypercholesterolemia Qualified Code(s): E78.00 - Pure hypercholesterolemia, unspecified - Time Time Spent: 50 to 70 Minutes Smoking Cessation Education: 3 to 10 minutes Medications reviewed and adjusted accordingly: Yes Anticipated discharge: Home Anticipated DC Timeframe: Other - To be determined
--- NOTE | 2020-06-17 03:21 | PDOC H&P ---
History of Present Illness Admission Date/PCP: 06/17/20 02:27 TEDDY CRISTINA DO History of Present Illness: MONICA ALBERTO is a 79 year old female past medical history of COPD, CHF, hypertension, multiple small bowel obstruction needing multiple abdominal surgeries. [facility] for small bowel obstruction and subsequently transferred to [facility]. Last bowel surgery late [address] Shabazz at [facility] and as per patient she was told that she is not a surgical candidate anymore as her bowels are "paper thin" Patient presenting to ED complaining of sudden onset left lower quadrant abdominal pain around 4 PM yesterday associated with multiple episodes of nonbloody, nonbilious vomiting. Abdominal pain is pain is sharp, colicky, 10/10, worse with movement or eating, relieved with Dilaudid. Patient passing flatus this afternoon presenting to ED,last bowel movement x24 hours ago Denies any shortness of breath, fever, chills, chest pain, lightheadedness or palpitation, urinary symptoms. Patient presented to ED 6 days prior to this admission complaining of subjective fever, patient was tested for COVID and discharged home. COVID serology came back negative. In ED she was noted to have leukocytosis, a KUB did not show any evidence of small bowel obstruction, CT abdomen and pelvis showed multiple distended small bowel loops, consistent with at least partial small bowel obstruction, transition point likely in the left lower quadrant. Surgery was consulted and they recommended for patient to be admitted under medicine and surgery to be consulted. Past Medical History Cardiac Medical History: Reports: Congestive Heart Failure, Hyperlipidema, Hypertension, Heart Murmur Denies: Myocardial Infarction Pulmonary Medical History: Reports: Asthma - MEDICATED/LAST HOSPITALIZATION 11/2016 PNEUMONIA/CHF, Bronchitis, Chronic Obstructive Pulmonary Disease (COPD), Pneumonia Denies: Tuberculosis Neurological Medical History: Denies: Seizures Endocrine Medical History: Reports: Diabetes Mellitus Type 2 - When necessary in sulin for steroid induced hypoglycemia. GI Medical History: Reports: Diverticulitis, Gastroesophageal Reflux Disease Denies: Cirrhosis, Hepatitis, Hiatal Hernia Musculoskeltal Medical History: Reports: Arthritis Psychiatric Medical History: Reports: Depression - Some appropriate transient depression after her son 2 years ago. Hematology: Reports: Anemia - NO CURRENT MEDS Denies: Sickle Cell Disease Past Surgical History Past Surgical History: Reports: Appendectomy, Cholecystectomy, Hysterectomy, Orthopedic Surgery - Right hand, Tonsillectomy, Other - Partial colectomy, Exploratory laparoscopy with lysis of adhesions 3 Denies: Amputation, Mastectomy, Pacemaker Social History Lives with: Family Smoking Status: Never Smoker Frequency of Alcohol Use: None Hx Recreational Drug Use: No Drugs: None Hx Prescription Drug Abuse: No Family History Family History: Malignancy, CAD, COPD, Hyperlipidemia, Reviewed & Not Pertinent Parental Family History Reviewed: Yes Children Family History Reviewed: Yes Sibling(s) Family History Reviewed.: Yes Medication/Allergy Home Medications: Aspirin [Adult Aspirin] 81 mg PO DAILY 11/14/18 Fluticasone Propionate [Flonase Nasal [place] 50 Mcg/[place] 16 gm] 1 spray NS DAILY 11/14/18 Melatonin [Melatonin 5 mg Tablet] 5 mg PO QHS 11/14/18 Multivitamin [Daily Multiple Vitamin] 1 each PO DAILY 11/14/18 Nitrofurantoin Macrocrystal [Macrodantin] 100 mg PO Q12 11/14/18 Ranitidine HCl 150 mg PO QHS 11/14/18 Cephalexin [Cephalexin 500 MG Tablet] 1 tab PO BID #14 tablet 06/20/19 Allergies/Adverse Reactions: adhesive Allergy (Intermediate, Verified 10/13/19 10:58) RASH AND BLISTERING WITH CONTACT. ciprofloxacin [From Cipro] Allergy (Verified 10/13/19 10:58) Review of Systems Review of Systems: as per hpi Physical Exam Vital Signs: Temp Pulse Resp BP Pulse Ox 98.1 F 25 H 126/63 H 96 06/17/20 02:08 06/17/20 02:08 06/17/20 02:08 06/17/20 02:00 Intake & Output 06/15/20 06/16/20 06/17/20 06:59 06:59 06:59 Weight 63.796 kg General appearance: PRESENT: no acute distress, well-developed, well-nourished Head exam: PRESENT: atraumatic, normocephalic Neck exam: ABSENT: carotid bruit, JVD, lymphadenopathy, thyromegaly Respiratory exam: PRESENT: crackles. ABSENT: rales, rhonchi, wheezes Cardiovascular exam: PRESENT: RRR. ABSENT: diastolic murmur, rubs, systolic murmur Pulses: PRESENT: normal dorsalis pedis pul GI/Abdominal exam: PRESENT: distended, guarding, hypoactive bowel sounds, normal bowel sounds, tenderness - LLQ. ABSENT: mass, organolmegaly, rebound Neurological exam: PRESENT: alert, awake, oriented to person, oriented to place, oriented to time, oriented to situation, CN II-XII grossly intact. ABSENT: motor sensory deficit Results Laboratory Results: 06/17/20 00:10 06/17/20 00:10 06/17/20 06/17/20 06/17/20 00:10 00:10 01:50 WBC 15.2 H RBC 4.14 Hgb 11.4 L Hct 34.6 L MCV 84 MCH 27.5 MCHC 32.8 RDW 13.9 Plt Count 343 Seg Neutrophils % 81.2 H Sodium 141.8 Potassium 4.0 Chloride 111 H Carbon Dioxide 20 L Anion Gap 11 BUN 21 H Creatinine 0.86 Est GFR ( Amer) > 60 Glucose 117 H Calcium 10.7 H Total Bilirubin 0.4 AST 23 Alkaline Phosphatase 144 H Total Protein 7.7 Albumin 4.4 Lipase 56.5 Urine Color YELLOW Urine Appearance SLIGHTLY-CLOUDY Urine pH 5.0 Ur Specific [place] 1.029 Urine Protein NEGATIVE Urine Glucose (UA) NEGATIVE Urine Ketones NEGATIVE Urine Blood SMALL H Urine Nitrite NEGATIVE Ur Leukocyte Esterase SMALL H Urine WBC (Auto) 19 Urine RBC (Auto) 1 Impressions: Abdomen/Pelvis CT 06/16/20 23:49 IMPRESSION: 1. Multiple distended small bowel loops, consistent with at least a partial small bowel obstruction. Transition point is likely in the left lower quadrant. 2. No perforation or abscess. KUB X-Ray 06/16/20 23:51 IMPRESSION: No evidence of obstruction, the reported clinical concern. Chest X-Ray 06/16/20 23:54 IMPRESSION: No evidence of active intrathoracic disease. No adverse change Assessment and Plan - Diagnosis (1) Small bowel obstruction Is this a current diagnosis for this admission?: Yes Plan: NG tube for decompression, IV fluid restriction guided by volume status, monitor electrolytes replace as needed. N.p.o. status. Surgery consulted, recommendations noted. (2) Abdominal pain Qualifiers: Abdominal location: left lower quadrant Qualified Code(s): R10.32 - Left lower quadrant pain Is this a current diagnosis for this admission?: Yes Plan: Due to #1. Opioid and non-opioid analgesics, avoid excessive opioid use as it may mask worsening symptoms. (3) GERD (gastroesophageal reflux disease) Qualifiers: Esophagitis presence: without esophagitis Qualified Code(s): K21.9 - Gastro-esophageal reflux disease without esophagitis Is this a current diagnosis for this admission?: Yes Plan: Resume home meds. Outpatient PCP and gastroenterology follow-up. (4) Chronic obstructive pulmonary disease (COPD) Qualifiers: COPD type: COPD with acute exacerbation Qualified Code(s): J44.1 - Chronic obstructive pulmonary disease with (acute) exacerbation Is this a current diagnosis for this admission?: Yes Plan: History of oxygen dependent COPD. 2 L nasal cannula as needed. Mild wheezing on physical examination. Supplemental oxygen, ICS, LABA, LABA, PRN duo nebs and BiPAP. Pulmonary toileti ng and incentive spirometry. (5) Hyperlipemia Is this a current diagnosis for this admission?: Yes Plan: Resume home meds. (6) Leukocytosis Is this a current diagnosis for this admission?: Yes Plan: Likely due to #1. Empiric broad-spectrum IV antibiotics. Blood culture. - Time Time Spent with patient: 35 or more minutes Medications reviewed and adjusted accordingly: Yes Anticipated Discharge Disposition: Home with Home Health Anticipated Discharge Timeframe: within 72 hours
[2020-06-17] MEDS: DEXTROSE 5%-NORMAL SALINE 1,000 ML IV PRN ×2 (03:48→22:25)
[2020-06-17] MEDS ORDERED: CEFTRIAXONE 1 GM/D5W RTU 1 GM/50 ML RTUPB IV ONE (04:00)
[2020-06-17] MEDS: KETOROLAC TROMETHAMINE INJ/PF 30 MG/1 ML SDV IV PRN (04:36)
[2020-06-17] MEDS: PROMETHAZINE HCL INJ 25 MG/1 ML VIAL IV PRN ×3 (04:37→16:56)
[2020-06-17] MEDS: HEPARIN SOD (PORCINE) 5,000 UNIT/ML 1 ML VIAL SUBCUT SCH ×3 (05:10→22:28)
[2020-06-17] MEDS ORDERED: METRONIDAZOLE 500 MG/NS RTU 500 MG/100 ML RTUPB IV SCH (06:00)
[2020-06-17] MEDS: INSULIN LISPRO 100 UNIT/ML 3 ML VIAL SUBCUT SCH ×4 (06:26→23:31)
[2020-06-17] MEDS: HYDROMORPHONE HCL INJ/PF 2 MG/ML AMPULE IV PRN ×5 (08:34→23:23)
[2020-06-17] MEDS: METRONIDAZOLE 500 MG/NS RTU 500 MG/100 ML RTUPB IV SCH ×3 (08:35→22:26)
[2020-06-17] MEDS: ONDANSETRON HCL INJ/PF 4 MG/2 ML SDV IV PRN ×2 (08:46→15:07)
[2020-06-17] MEDS: FAMOTIDINE INJ/PF 20 MG/2 ML SDV IV SCH ×2 (10:39→22:28)
[2020-06-17] MEDS: FLUTICASONE/UMECLIDIN/VILANTER 100-62.5-25 MCG/DOSE IH SCH (12:26)
--- NOTE | 2020-06-17 12:52 | RADIOLOGY REPORT (SQ) ---
EXAM DESCRIPTION: KUB/ABDOMEN (SINGLE VIEW) IMAGES COMPLETED DATE/TIME: 06/17/2020 12:32 pm REASON FOR STUDY: Check NG placement COMPARISON: None. NUMBER OF VIEWS: One view. TECHNIQUE: Supine radiographic image of the abdomen acquired. LIMITATIONS: Lower abdomen excluded by collimation. FINDINGS: BOWEL GAS PATTERN: Persistent gas dilated small bowel loops within the left hemiabdomen, s imilar to prior CT. CALCIFICATIONS: No suspicious calcifications. SOFT TISSUES: No gross mass or suggestion of organomegaly. HARDWARE: Nasoenteric tube tip overlies gastric body. Left abdomen surgical clips. BONES: No acute fracture. No worrisome bone lesions. OTHER: No other significant finding. IMPRESSION: Nasoenteric tube tip overlies stomach. Persistent gas dilated small bowel loops within the left hemiabdomen compatible with obstruction. TECHNICAL DOCUMENTATION: JOB ID: [id number] 2010 [employer]- All Rights Reserved Reading location - IP/workstation name: [email or web address]
--- NOTE | 2020-06-17 15:59 | PDOC PROGRESS REPORT ---
Subjective Progress Note for:: 06/17/20 Subjective:: Abdominal pains primarily around the umbilical area Reason For Visit: ABDOMINAL PAIN,SMALL BOWEL ONSTRUCTION Physical Exam Vital Signs: Temp Pulse Resp BP Pulse Ox 97.8 F 102 H 20 128/53 H 95 06/17/20 12:08 06/17/20 14:24 06/17/20 14:24 06/17/20 12:08 06/17/20 14:24 Intake & Output 06/16/20 06/17/20 06/18/20 06:59 06:59 06:59 Intake Total 50 100 Output Total 550 Balance -500 100 Weight 63 kg Exam: NG tube not draining much. The abdomen is distended but soft with mild tenderness along the periumbilical areas. Patient has multiple vertical scars. Results Laboratory Results: 06/17/20 00:10 06/17/20 00:10 06/17/20 06/17/20 06/17/20 00:10 00:10 01:50 WBC 15.2 H RBC 4.14 Hgb 11.4 L Hct 34.6 L MCV 84 MCH 27.5 MCHC 32.8 RDW 13.9 Plt Count 343 Seg Neutrophils % 81.2 H Sodium 141.8 Potassium 4.0 Chloride 111 H Carbon Dioxide 20 L Anion Gap 11 BUN 21 H Creatinine 0.86 Est GFR ( Amer) > 60 Glucose 117 H Lactic Acid Calcium 10.7 H Total Bilirubin 0.4 AST 23 Alkaline Phosphatase 144 H Total Protein 7.7 Albumin 4.4 Lipase 56.5 Urine Color YELLOW Urine Appearance SLIGHTLY-CLOUDY Urine pH 5.0 Ur Specific [place] 1.029 Urine Protein NEGATIVE Urine Glucose (UA) NEGATIVE Urine Ketones NEGATIVE Urine Blood SMALL H Urine Nitrite NEGATIVE Ur Leukocyte Esterase SMALL H Urine WBC (Auto) 19 Urine RBC (Auto) 1 06/17/20 02:30 WBC RBC Hgb Hct MCV MCH MCHC RDW Plt Count Seg Neutrophils % Sodium Potassium Chloride Carbon Dioxide Anion Gap BUN Creatinine Est GFR ( Amer) Glucose Lactic Acid 1.6 Calcium Total Bilirubin AST Alkaline Phosphatase Total Protein Albumin Lipase Urine Color Urine Appearance Urine pH Ur Specific [place] Urine Protein Urine Glucose (UA) Urine Ketones Urine Blood Urine Nitrite Ur Leukocyte Esterase Urine WBC (Auto) Urine RBC (Auto) Impressions: Abdomen/Pelvis CT 06/16/20 23:49 IMPRESSION: 1. Multiple distended small bowel loops, consistent with at least a partial small bowel obstruction. Transition point is likely in the left lower quadrant. 2. No perforation or abscess. Chest X-Ray 06/16/20 23:54 IMPRESSION: No evidence of active intrathoracic disease. No adverse change KUB X-Ray 06/17/20 12:00 IMPRESSION: Nasoenteric tube tip overlies stomach. Persistent gas dilated small bowel loops within the left hemiabdomen compatible with obstruction. Assessment & Plan - Diagnosis (1) Abdominal pain Qualifiers: Abdominal location: left lower quadrant Qualified Code(s): R10.32 - Left lower quadrant pain Is this a current diagnosis for this admission?: Yes (2) Small bowel obstruction Is this a current diagnosis for this admission?: Yes - Time Critical Time spent with patient: 15-24 minutes Anticipated Discharge Disposition: Home with Home Health Anticipated Discharge Timeframe: within 48 hours - Inpatient Certification Medical Necessity: Need For IV Fluids, Need for Pain Control, Need for Surgery - Plan Summary Plan Summary: Patient has multiple exploratory laparotomies for bowel obstruction in the past. Her last 2 were done at [facility]. She was admitted yesterday for small bowel obstruction. The surgeon at [facility] initially told the patient that if she develops another bowel obstruction that she should go back to [facility] for surgery. Another operation on her bowels will be more difficult and dangerous because they are thinned out according to the surgeon. The surgeon on-call at [facility] was called by our hospitalist, who talked to the original surgeon Dr. Shabazz, and was told that he is not interested in taking her back. On examination, her abdomen is distended but soft with moderate diffuse tenderness primarily around the umbilicus. Plans: We will also order small bowel follow-through with Gastrografin to see where the site of obstruction is and potentially may improve the obstruction. May need exploratory laparotomy.
--- NOTE | 2020-06-17 16:41 | Progress Note ---
Provider Note Provider Note: Patient seen and examined by me. She was admitted late this morning by laura, see H&P for full details of admission. Patient admitted with a long history of multiple SBO requiring multiple exploratory laparotomies in the past. Patient states these were done at various hospitals with most recently she has been seeing Dr. Shabazz at [facility] and she requested transfer there for him to monitor her and potentially perform him additional surgery on her. I called [facility] for transfer and discussed the case with the surgical team. They outright refused a transfer and stated our surgical team can handle any surgeries that she would need at our facility. Abdomen is tender on exam but does not appear to be an acute abdomen as of yet. No bowel movements or flatus per patient. She states that every time she has had a small bowel obstruction in the past that has required surgery and it has never resolved with medical management alone. I discussed the case with general surgery multiple times today and he stated the patient will be started on a small bowel series.
--- NOTE | 2020-06-17 19:25 | RADIOLOGY REPORT (SQ) ---
EXAM DESCRIPTION: SMALL BOWEL SERIES IMAGES COMPLETED DATE/TIME: 06/17/2020 6:02 pm REASON FOR STUDY: Rule out small bowel obstruction COMPARISON: CT abdomen and pelvis, same date. TECHNIQUE: Patient was given to under 40 mL of Gastrografin contrast and 120 mL water through her NG tube. An immediate radiograph was taken. Delayed images at 1 minute and 1 hour were then obtained. The patient was unable to tolerate further imaging and her attending physician ordered the NG tube placed dissection due to nausea and vomiting. LIMITATIONS: The examination was not completed due to patient tolerance. FINDINGS: The 1 hour images demonstrate multiple dilated loops of small bowel containing contrast. No contrast is seen in the distal small bowel or colon. There is excreted contrast in the urinary bl adder. IMPRESSION: Multiple dilated loops of small bowel with no contrast distally, possibly representing p artial or complete bowel obstruction. TECHNICAL DOCUMENTATION: JOB ID: [id number] 2010 [email or web address]- All Rights Reserved Reading location - IP/workstation name: [email or web address]
[2020-06-18] MEDS: METRONIDAZOLE 500 MG/NS RTU 500 MG/100 ML RTUPB IV SCH ×4 (04:41→22:28)
[2020-06-18 04:50] LABS: INTERNATIONAL RATION (INR) 1.13; PROTHROMBIN TIME 14.7 SEC (11.4-15.4)
[2020-06-18 05:00] LABS: ABSOLUTE EOSINOPHILS # (AUTO) 0.1 10^3/uL (0.0-0.6); ABSOLUTE MONOCYTES (AUTO) 0.7 10^3/uL (0.1-1.4); ABSOLUTE NEUT (AUTO) 3.8 10^3/uL (1.7-8.2); BASOPHILS % (AUTO) 0.3 % (0-2); EOSINOPHILS % (AUTO) 1.8 % (0-6); HEMOGLOBIN 10.3 g/dL (12.0-15.5); LYMPHOCYTES % (AUTO) 17.4 % (13-45); MEAN CORPUSCULAR HEMOGLOBIN 28.1 pg (27.0-33.4); MEAN CORPUSCULAR HGB CONC 33.3 g/dL (32.0-36.0); MEAN CORPUSCULAR VOLUME 84 fl (80-97); MONOCYTES % (AUTO) 12.7 % (3-13); PLATELET COUNT 234 10^3/uL (150-450); RED BLOOD COUNT 3.68 10^6/uL (3.72-5.28); RED CELL DISTRIBUTION WIDTH 14.1 % (11.5-14.0); SEGMENTED NEUTROPHILS % (AUTO) 67.8 % (42-78); TOTAL CELLS COUNTED % (AUTO) 100 %; WHITE BLOOD COUNT 5.5 10^3/uL (4.0-10.5)
[2020-06-18 05:07] LABS: ALBUMIN 3.5 g/dL (3.5-5.0); ALKALINE PHOSPHATASE 87 U/L (38-126); ANION GAP 9 (5-19); ASPARTATE AMINO TRANSFERASE 20 U/L (14-36); BILIRUBIN,DIRECT 0.3 mg/dL (0.0-0.4); BILIRUBIN,TOTAL 0.4 mg/dL (0.2-1.3); BLOOD UREA NITROGEN 25 mg/dL (7-20); CALCIUM 8.6 mg/dL (8.4-10.2); CARBON DIOXIDE 23 mmol/L (22-30); CHLORIDE 114 mmol/L (98-107); GLUCOSE 117 mg/dL (75-110); POTASSIUM 3.7 mmol/L (3.6-5.0); TOTAL PROTEIN 6.3 g/dL (6.3-8.2)
[2020-06-18] MEDS: INSULIN LISPRO 100 UNIT/ML 3 ML VIAL SUBCUT SCH ×3 (06:07→18:00)
[2020-06-18] MEDS: HEPARIN SOD (PORCINE) 5,000 UNIT/ML 1 ML VIAL SUBCUT SCH ×3 (06:08→22:25)
--- NOTE | 2020-06-18 09:03 | RADIOLOGY REPORT (SQ) ---
EXAM DESCRIPTION: KUB/ABDOMEN (SINGLE VIEW) IMAGES COMPLETED DATE/TIME: 06/18/2020 8:48 am REASON FOR STUDY: SBO COMPARISON: 06/17/2020. NUMBER OF VIEWS: One view. TECHNIQUE: Supine radiographic image of the abdomen acquired. The image was acquired 15 hours afte r oral contrast for small bowel series. LIMITATIONS: None. FINDINGS: BOWEL GAS PATTERN: Contrast present throughout the colon and rectum. Minimal small bowel dilation. CALCIFICATIONS: No suspicious calcifications. SOFT TISSUES: No gross mass or suggestion of organomegaly. HARDWARE: Nasogastric tube, tip in stomach. Surgical clips. BONES: No acute fracture. No worrisome bone lesions. OTHER: No other significant finding. IMPRESSION: MINIMAL SMALL BOWEL DILATION. ORAL CONTRAST HAS NOW PROGRESSED THROUGH THE BOWEL AND IS PRESENT IN THE COLON AND RECTUM. TECHNICAL DOCUMENTATION: JOB ID: [id number] 2010 [employer]- All Rights Reserved Reading location - IP/workstation name: [email or web address]
[2020-06-18] MEDS: FAMOTIDINE INJ/PF 20 MG/2 ML SDV IV SCH ×2 (09:33→22:29)
[2020-06-18] MEDS: CEFTRIAXONE 1 GM/D5W RTU 1 GM/50 ML RTUPB IV SCH (10:45)
--- NOTE | 2020-06-18 11:05 | PDOC PROGRESS REPORT ---
Subjective Progress Note for:: 06/18/20 Subjective:: Much less abdominal pains. Had a bowel movement this morning. No drainage from the NG tube Reason For Visit: ABDOMINAL PAIN,SMALL BOWEL ONSTRUCTION Physical Exam Vital Signs: Temp Pulse Resp BP Pulse Ox 97.6 F 75 17 117/43 L 100 06/18/20 07:46 06/18/20 07:46 06/18/20 07:46 06/18/20 07:46 06/18/20 07:46 Intake & Output 06/17/20 06/18/20 06/19/20 06:59 06:59 06:59 Intake Total 50 1400 100 Output Total 550 875 Balance -500 525 100 Weight 63 kg 67.7 kg Exam: Abdomen is soft with mild tenderness in the left lower quadrant area and much less distended. Results Laboratory Results: 06/18/20 04:31 06/18/20 04:31 06/18/20 06/18/20 04:31 04:31 WBC 5.5 RBC 3.68 L Hgb 10.3 L Hct 31.0 L MCV 84 MCH 28.1 MCHC 33.3 RDW 14.1 H Plt Count 234 Seg Neutrophils % 67.8 Sodium 146.2 H Potassium 3.7 Chloride 114 H Carbon Dioxide 23 Anion Gap 9 BUN 25 H Creatinine 0.87 Est GFR ( Amer) > 60 Glucose 117 H Calcium 8.6 Phosphorus 4.0 Magnesium 1.8 Total Bilirubin 0.4 AST 20 Alkaline Phosphatase 87 Total Protein 6.3 Albumin 3.5 Impressions: Abdomen/Pelvis CT 06/16/20 23:49 IMPRESSION: 1. Multiple distended small bowel loops, consistent with at least a partial small bowel obstruction. Transition point is likely in the left lower quadrant. 2. No perforation or abscess. Chest X-Ray 06/16/20 23:54 IMPRESSION: No evidence of active intrathoracic disease. No adverse change Small Bowel X-Ray 06/17/20 00:00 IMPRESSION: Multiple dilated loops of small bowel with no contrast distally, possibly representing partial or complete bowel obstruction. KUB X-Ray 06/18/20 06:00 IMPRESSION: MINIMAL SMALL BOWEL DILATION. ORAL CONTRAST HAS NOW PROGRESSED THROUGH THE BOWEL AND IS PRESENT IN THE COLON AND RECTUM. Assessment & Plan - Diagnosis (1) Abdominal pain Qualifiers: Abdominal location: left lower quadrant Qualified Code(s): R10.32 - Left lower quadrant pain Is this a current diagnosis for this admission?: Yes (2) Small bowel obstruction Is this a current diagnosis for this admission?: Yes - Time Critical Time spent with patient: 15-24 minutes Anticipated Discharge Disposition: Home, Self Care Anticipated Discharge Timeframe: within 24 hours - Inpatient Certification Medical Necessity: Need For IV Fluids - Plan Summary Plan Summary: Patient appears to have opened up with positive bowel movement. KUB this morning also showed the in the colon with less dilatation of small bowel. Patient also feels a lot better. We will start her on clear liquids and increase to full liquids as tolerated. Possible discharge later today and continue liquid diet over the next 2 to 3 days and follow-up in the surgical clinic or with her original surgeon in [place].
[2020-06-18] MEDS: FLUTICASONE/UMECLIDIN/VILANTER 100-62.5-25 MCG/DOSE IH SCH (13:36)
[2020-06-18] MEDS: DEXTROSE 5%-NORMAL SALINE 1,000 ML IV PRN (17:15)
--- NOTE | 2020-06-18 17:46 | PDOC PROGRESS REPORT ---
Subjective Subjective:: Patient states she feels much better today and is very glad that her NG tube is been removed. She is having some bowel movements in the contrast was seen to be moving for her colon and rectum on the small bowel series that was done. She is started on a clear liquid diet by general surgery. Blood cultures are negative. Patient has no new complaints today other than still having some residual abdominal pain but this is better than yesterday. Reason For Visit: ABDOMINAL PAIN,SMALL BOWEL ONSTRUCTION Physical Exam Vital Signs: Temp Pulse Resp BP Pulse Ox 97.8 F 81 17 111/45 L 99 06/18/20 15:15 06/18/20 15:15 06/18/20 15:15 06/18/20 15:15 06/18/20 15:15 Intake & Output 06/17/20 06/18/20 06/19/20 06:59 06:59 06:59 Intake Total 50 1400 1250 Output Total 550 875 Balance -966 063 9454 Weight 63 kg 67.7 kg Exam: General appearance: PRESENT: no acute distress, well-developed, well-nourished, states her abdomen feels much better today Head exam: PRESENT: atraumatic, normocephalic Eye exam: PRESENT: conjunctiva pink Mouth exam: PRESENT: moist Respiratory exam: PRESENT: rales - Wet rales, unlabored. ABSENT: rhonchi, wheezes Cardiovascular exam: PRESENT: RRR. ABSENT: diastolic murmur, rubs, systolic murmur GI/Abdominal exam: PRESENT: normal bowel sounds, soft, mild to moderate tenderness with palpation. ABSENT: distended, guarding, mass, organolmegaly, rebound Extremities exam: PRESENT: pedal edema, +1 edema Neurological exam: PRESENT: alert, awake, oriented to person, oriented to place, oriented to time, oriented to situation Psychiatric exam: PRESENT: appropriate affect, normal mood Skin exam: PRESENT: dry, intact, warm Results Laboratory Results: 06/18/20 04:31 06/18/20 04:31 06/18/20 06/18/20 04:31 04:31 WBC 5.5 RBC 3.68 L Hgb 10.3 L Hct 31.0 L MCV 84 MCH 28.1 MCHC 33.3 RDW 14.1 H Plt Count 234 Seg Neutrophils % 67.8 Sodium 146.2 H Potassium 3.7 Chloride 114 H Carbon Dioxide 23 Anion Gap 9 BUN 25 H Creatinine 0.87 Est GFR ( Amer) > 60 Glucose 117 H Calcium 8.6 Phosphorus 4.0 Magnesium 1.8 Total Bilirubin 0.4 AST 20 Alkaline Phosphatase 87 Total Protein 6.3 Albumin 3.5 Impressions: Abdomen/Pelvis CT 06/16/20 23:49 IMPRESSION: 1. Multiple distended small bowel loops, consistent with at least a partial small bowel obstruction. Transition point is likely in the left lower quadrant. 2. No perforation or abscess. Chest X-Ray 06/16/20 23:54 IMPRESSION: No evidence of active intrathoracic disease. No adverse change Small Bowel X-Ray 06/17/20 00:00 IMPRESSION: Multiple dilated loops of small bowel with no contrast distally, possibly representing partial or complete bowel obstruction. KUB X-Ray 06/18/20 06:00 IMPRESSION: MINIMAL SMALL BOWEL DILATION. ORAL CONTRAST HAS NOW PROGRESSED THROUGH THE BOWEL AND IS PRESENT IN THE COLON AND RECTUM. Assessment and Plan - Diagnosis (1) Small bowel obstruction Is this a current diagnosis for this admission?: Yes Plan: Admitted with small bowel obstruction seen on imaging, has had this many times in the past requiring at least 5 exploratory laparotomies to cut extensive adhesions Attempted to transfer patient to [place] to see her general surgeon but this was refused by them Small bowel series ordered by general surgery here and this was effective at clearing the obstruction, started on clear liquid diet General surgery consulted and following Needs follow-up with GI outpatient (2) Abdominal pain Qualifiers: Abdominal location: left lower quadrant Qualified Code(s): R10.32 - Left lower quadrant pain Is this a current diagnosis for this admission?: Yes Plan: Improved, avoid opioid use (3) GERD (gastroesophageal reflux disease) Qualifiers: Esophagitis presence: without esophagitis Qualified Code(s): K21.9 - Gastro-esophageal reflux disease without esophagitis Is this a current diagnosis for this admission?: Yes (4) Small bowel obstruction Is this a current diagnosis for this admission?: Yes (5) Chronic obstructive pulmonary disease (COPD) Qualifiers: COPD type: COPD with acute exacerbation Qualified Code(s): J44.1 - Chronic obstructive pulmonary disease with (acute) exacerbation Is this a current diagnosis for this admission?: Yes Plan: History of oxygen dependent COPD. 2 L nasal cannula as needed. Mild wheezing on physical examination. Supplemental oxygen, ICS, LABA, LABA, PRN duo nebs and BiPAP. Pulmonary toileting and incentive spirometry. (6) Diabetes mellitus type 2 in nonobese Is this a current diagnosis for this admission?: Yes Plan: Correctional insulin and Accu-Cheks Stable (7) Hyperlipemia Is this a current diagnosis for this admission?: Yes - Time Time Spent with patient: 15-24 minutes Medications reviewed and adjusted accordingly: Yes Anticipated Discharge Disposition: Home, Self Care Anticipated Discharge Timeframe: within 48 hours - Inpatient Certification Based on my medical assessment, after consideration of the patient's comorbidities, presenting symptoms, or acuity I expect that the services needed warrant INPATIENT care.: Yes I certify that my determination is in accordance with my understanding of Medicare's requirements for reasonable and necessary INPATIENT services [42 CFR 412.3e].: Yes Medical Necessity: Significant Comorbidiites Make Outpatient Treatment Too Risky, Need Close Monitoring Due to Risk of Patient Decompensation, Need for Pain Control, Risk of Complication if Not Cared For in Hospital, Risk of Diagnosis Which Will Require Inpatient Eval/Care/Monitoring
[2020-06-19 02:18] VITALS: BP 124/54
[2020-06-19] MEDS: METRONIDAZOLE 500 MG/NS RTU 500 MG/100 ML RTUPB IV SCH ×2 (02:28→11:46)
[2020-06-19] MEDS: KETOROLAC TROMETHAMINE INJ/PF 30 MG/1 ML SDV IV PRN (02:39)
[2020-06-19] MEDS: HEPARIN SOD (PORCINE) 5,000 UNIT/ML 1 ML VIAL SUBCUT SCH ×2 (05:23→14:00)
[2020-06-19] MEDS ORDERED: INSULIN LISPRO 100 UNIT/ML 3 ML VIAL SUBCUT SCH (08:00)
--- NOTE | 2020-06-19 10:21 | RADIOLOGY REPORT (SQ) ---
EXAM DESCRIPTION: KUB/ABDOMEN (SINGLE VIEW) IMAGES COMPLETED DATE/TIME: 06/19/2020 9:35 am REASON FOR STUDY: SBO COMPARISON: None. NUMBER OF VIEWS: Supine view of the abdomen from 06/18/2020. TECHNIQUE: AP supine views of the abdomen were obtained. LIMITATIONS: None. FINDINGS: BOWEL GAS PATTERN: The oral contrast has continued to migrate and at the moment is predomi nantly within the sigmoid colon and rectum. There are no dilated loops of small bowel. CALCIFICATIONS: There are no calcifications that project within the renal fossae. SOFT TISSUES: No abnormality. HARDWARE: Surgical clips in the left upper and lower quadrants. BONES: Degenerative spondylosis of the lumbar spine. OTHER: Barnes catheter. IMPRESSION: The oral contrast has continued to migrate and at the moment is predominantly within the sigmoid colon and rectum. There are no dilated loops of small bowel. TECHNICAL DOCUMENTATION: JOB ID: [id number] 2010 [employer]- All Rights Reserved Reading location - IP/workstation name: [email or web address]
[2020-06-19] MEDS: FAMOTIDINE INJ/PF 20 MG/2 ML SDV IV SCH (11:46)
[2020-06-19] MEDS: CEFTRIAXONE 1 GM/D5W RTU 1 GM/50 ML RTUPB IV SCH (11:46)
[2020-06-19] MEDS: FLUTICASONE/UMECLIDIN/VILANTER 100-62.5-25 MCG/DOSE IH SCH (12:21)
[2020-06-19] MEDS: ONDANSETRON HCL INJ/PF 4 MG/2 ML SDV IV PRN (14:09)
[2020-06-19] MEDS ORDERED: LACTULOSE SYRUP 20 GM/30 ML UDCUP PO SCH (15:45)
--- NOTE | 2020-06-19 16:52 | PDOC DISCHARGE SUMMARY ---
Impression - Admit/DC Date/PCP Admission Date/Primary Care Provider: 06/17/20 02:27 TEDDY CRISTINA DO Discharge Date: 06/19/20 - Discharge Diagnosis (1) Small bowel obstruction Is this a current diagnosis for this admission?: Yes (2) Abdominal pain Is this a current diagnosis for this admission?: Yes (3) GERD (gastroesophageal reflux disease) Is this a current diagnosis for this admission?: Yes (4) Small bowel obstruction Is this a current diagnosis for this admission?: Yes (5) Chronic obstructive pulmonary disease (COPD) Is this a current diagnosis for this admission?: Yes (6) Diabetes mellitus type 2 in nonobese Is this a current diagnosis for this admission?: Yes (7) Hyperlipemia Is this a current diagnosis for this admission?: Yes - Additional Information Discharge Diet: As Tolerated, Regular Discharge Activity: Activity As Tolerated, Balance Activity w/Rest Referrals: KARLI BRITT MD [ACTIVE STAFF] - 06/28/20 1:15 pm TEDDY CRISTINA DO [Primary Care Provider] - Follow up as needed (left message to call us ) Prescriptions: Lactulose [Cephulac Syrup 20 gm/30 ml Udcup] 10 gm PO Q12 #60 udc Home Medications: Fluticasone Propionate [Flonase Nasal [place] 50 Mcg/[place] 16 gm] 1 spray NS DAILY 11/14/18 Melatonin [Melatonin 5 mg Tablet] 5 mg PO QHS 11/14/18 Albuterol Sulfate [Albuterol Sulfate Hfa] 2 puff IH Q6HP PRN 06/17/20 Cyclosporine 0.05% Oph Emulsio [Restasis 0.05% Oph Emulsion Pf 0.4 ml] 1 drop OU BID 06/17/20 Fluticasone/Vilanterol [Breo Ellipta 100-25 Mcg INH] 1 inh IH DAILY 06/17/20 Latanoprost [Xalatan 0.005% Oph Soln 2.5 ml] 1 drop OP QHS 06/17/20 Lisinopril [Prinivil 10 mg Tablet] 10 mg PO DAILY 06/17/20 Rosuvastatin Calcium [Crestor] 40 mg PO QHS 06/17/20 Lactulose [Cephulac Syrup 20 gm/30 ml Udcup] 10 gm PO Q12 #60 udc 06/19/20 History of Present Illiness History of Present Illness: Per Admitting Physician: "MONICA ALBERTO is a 79 year old female past medical history of COPD, CHF, hypertension, multiple small bowel obstruction needing multiple abdominal surgeries. Last admission here at [facility] 11/05/2018 for small bowel obstruction and subsequently transferred to [facility]. Last bowel surgery late [address] Shabazz at [facility] and as per patient she was told that she is not a surgical candidate anymore as her bowels are "paper thin" Patient presenting to ED complaining of sudden onset left lower quadrant abdominal pain around 4 PM yesterday associated with multiple episodes of nonbloody, nonbilious vomiting. Abdominal pain is pain is sharp, colicky, 10/10, worse with movement or eating, relieved with Dilaudid. Patient passing flatus this afternoon presenting to ED,last bowel movement x24 hours ago Denies any shortness of breath, fever, chills, chest pain, lightheadedness or palpitation, urinary symptoms. Patient presented to ED 6 days prior to this admission complaining of subjective fever, patient was tested for COVID and discharged home. COVID serology came back negative. In ED she was noted to have leukocytosis, a KUB did not show any evidence of small bowel obstruction, CT abdomen and pelvis showed multiple distended small bowel loops, consistent with at least partial small bowel obstruction, transition point likely in the left lower quadrant. Surgery was consulted and they recommended for patient to be admitted under medicine and surgery to be consulted." Hospital Course Hospital Course: Patient noted for small bowel obstruction seen on imaging, general surgery consulted and NG tube was placed for decompression, patient given IV fluids and small bowel series begun which showed eventual movement of contrast into colon and rectum with resultant multiple bowel movements. Bowel obstruction essentially resolved patient feeling much better in general surgery stating patient can be discharged home. Patient will need close follow-up with her PCP, GI, and general surgeon. She will continue her MiraLAX that she takes at home and I have added lactulose which she can take 1-4 times daily and we discussed her ability to titrate this up and down based on her bowel movement frequency and quality. (1) Small bowel obstruction resolved Is this a current diagnosis for this admission?: Yes Plan: Admitted with small bowel obstruction seen on imaging, has had this many times in the past requiring at least 5 exploratory laparotomies to cut extensive adhesions Attempted to transfer patient to [place] to see her general surgeon but this was refused by them Small bowel series ordered by general surgery here and this was effective at clearing the obstruction, started on clear liquid diet General surgery consulted and following Needs follow-up with GI and general surgery outpatient (2) Abdominal pain improved/resolving Qualifiers: Abdominal location: left lower quadrant Qualified Code(s): R10.32 - Left lower quadrant pain Is this a current diagnosis for this admission?: Yes Plan: Improved, avoid opioid use (3) GERD (gastroesophageal reflux disease) Qualifiers: Esophagitis presence: without esophagitis Qualified Code(s): K21.9 - Gastro -esophageal reflux disease without esophagitis Is this a current diagnosis for this admission?: Yes (4) Small bowel obstruction Is this a current diagnosis for this admission?: Yes (5) Chronic obstructive pulmonary disease (COPD) Qualifiers: COPD type: COPD with acute exacerbation Qualified Code(s): J44.1 - Chronic obstructive pulmonary disease with (acute) exacerbation Is this a current diagnosis for this admission?: Yes Plan: History of oxygen dependent COPD. 2 L nasal cannula as needed. Mild wheezing on physical examination later resolved Supplemental oxygen, ICS, LABA, LABA, PRN duo nebs and BiPAP. Pulmonary toileting and incentive spirometry. (6) Diabetes mellitus type 2 in nonobese Is this a current diagnosis for this admission?: Yes Plan: Correctional insulin and Accu-Cheks Stable (7) Hyperlipemia Is this a current diagnosis for this admission?: Yes Physical Exam Vital Signs: Temp Pulse Resp BP Pulse Ox 97.9 F 69 20 124/54 L 100 06/19/20 12:00 06/19/20 12:00 06/19/20 12:00 06/19/20 01:34 06/19/20 12:00 Intake & Output 06/18/20 06/19/20 06/20/20 06:59 06:59 06:59 Intake Total 1400 2428 Output Total 875 275 Balance 525 1953 Weight 67.7 kg 66.1 kg Exam: General appearance: PRESENT: no acute distress, well-developed, well-nourished, states she feels well and would like to go home today Head exam: PRESENT: atraumatic, normocephalic Eye exam: PRESENT: conjunctiva pink Mouth exam: PRESENT: moist Respiratory exam: PRESENT: rales - Wet rales, unlabored. ABSENT: rhonchi, wheezes Cardiovascular exam: PRESENT: RRR. ABSENT: diastolic murmur, rubs, systolic murmur GI/Abdominal exam: PRESENT: normal bowel sounds, soft, resolving mild tenderness with palpation. ABSENT: distended, guarding, mass, organolmegaly, rebound Extremities exam: PRESENT: pedal edema, +1 edema Neurological exam: PRESENT: alert, awake, oriented to person, oriented to place, oriented to time, oriented to situation Psychiatric exam: PRESENT: appropriate affect, normal mood Skin exam: PRESENT: dry, intact, warm Results Laboratory Results: WBC 5.5 10^3/uL (4.0-10.5) 06/18/20 04:31 RBC 3.68 10^6/uL (3.72-5.28) L 06/18/20 04:31 Hgb 10.3 g/dL (12.0-15.5) L 06/18/20 04:31 Hct 31.0 % (36.0-47.0) L 06/18/20 04:31 MCV 84 fl (80-97) 06/18/20 04:31 MCH 28.1 pg (27.0-33.4) 06/18/20 04:31 MCHC 33.3 g/dL (32.0-36.0) 06/18/20 04:31 RDW 14.1 % (11.5-14.0) H 06/18/20 04:31 Plt Count 234 10^3/uL (150-450) 06/18/20 04:31 Lymph % (Auto) 17.4 % (13-45) 06/18/20 04:31 [place] % (Auto) 12.7 % (3-13) 06/18/20 04:31 Eos % (Auto) 1.8 % (0-6) 06/18/20 04:31 Baso % (Auto) 0.3 % (0-2) 06/18/20 04:31 Absolute Neuts (auto) 3.8 10^3/uL (1.7-8.2) 06/18/20 04:31 Absolute Lymphs (auto) 1.0 10^3/uL (0.5-4.7) 06/18/20 04:31 Absolute Monos (auto) 0.7 10^3/uL (0.1-1.4) 06/18/20 04:31 Absolute Eos (auto) 0.1 10^3/uL (0.0-0.6) 06/18/20 04:31 Absolute Basos (auto) 0.0 10^3/uL (0.0-0.2) 06/18/20 04:31 Seg Neutrophils % 67.8 % (42-78) 06/18/20 04:31 PT 14.7 SEC (11.4-15.4) 06/18/20 04:31 INR 1.13 06/18/20 04:31 APTT 29.2 SEC (23.5-35.8) 06/17/20 00:10 Sodium 146.2 mmol/L (137-145) H 06/18/20 04:31 Potassium 3.7 mmol/L (3.6-5.0) 06/18/20 04:31 Chloride 114 mmol/L (98-107) H 06/18/20 04:31 Carbon Dioxide 23 mmol/L (22-30) 06/18/20 04:31 Anion Gap 9 (5-19) 06/18/20 04:31 BUN 25 mg/dL (7-20) H 06/18/20 04:31 Creatinine 0.87 mg/dL (0.52-1.25) 06/18/20 04:31 Est GFR ( Amer) > 60 (>60) 06/18/20 04:31 Est GFR (MDRD) Non-Af > 60 (>60) 06/18/20 04:31 Glucose 117 mg/dL (75-110) H 06/18/20 04:31 POC Glucose 151 mg/dL (70-110) H 06/19/20 14:06 Lactic Acid 1.6 mmol/L (0.7-2.1) 06/17/20 02:30 Calcium 8.6 mg/dL (8.4-10.2) 06/18/20 04:31 Phosphorus 4.0 mg/dL (2.5-4.5) 06/18/20 04:31 Magnesium 1.8 mg/dL (1.6-2.3) 06/18/20 04:31 Total Bilirubin 0.4 mg/dL (0.2-1.3) 06/18/20 04:31 Direct Bilirubin 0.3 mg/dL (0.0-0.4) 06/18/20 04:31 Neonat Total Bilirubin Not Reportable 06/18/20 04:31 Neonat Direct Bilirubin Not Reportable 06/18/20 04:31 Neonat Indirect Bili Not Reportable 06/18/20 04:31 AST 20 U/L (14-36) 06/18/20 04:31 ALT 13 U/L (<35) 06/18/20 04:31 Alkaline Phosphatase 87 U/L (38-126) 06/18/20 04:31 Total Protein 6.3 g/dL (6.3-8.2) 06/18/20 04:31 Albumin 3.5 g/dL (3.5-5.0) 06/18/20 04:31 Lipase 56.5 U/L (23-300) 06/17/20 00:10 Urine Color YELLOW 06/17/20 01:50 Urine Appearance SLIGHTLY-CLOUDY 06/17/20 01:50 Urine pH 5.0 (5.0-9.0) 06/17/20 01:50 Ur Specific [place] 1.029 06/17/20 01:50 Urine Protein NEGATIVE mg/dL (NEGATIVE) 06/17/20 01:50 Urine Glucose (UA) NEGATIVE mg/dL (NEGATIVE) 06/17/20 01:50 Urine Ketones NEGATIVE mg/dL (NEGATIVE) 06/17/20 01:50 Urine Blood SMALL (NEGATIVE) H 06/17/20 01:50 Urine Nitrite NEGATIVE (NEGATIVE) 06/17/20 01:50 Urine Bilirubin NEGATIVE (NEGATIVE) 06/17/20 01:50 Urine Urobilinogen NEGATIVE mg/dL (<2.0) 06/17/20 01:50 Ur Leukocyte Esterase SMALL (NEGATIVE) H 06/17/20 01:50 Urine WBC (Auto) 19 /HPF 06/17/20 01:50 Urine RBC (Auto) 1 /HPF 06/17/20 01:50 U Hyaline Cast (Auto) 1 /LPF 06/17/20 01:50 Urine Bacteria (Auto) 2+ /HPF 06/17/20 01:50 Squamous Epi Cells Auto <1 /HPF 06/17/20 01:50 Urine Mucus (Auto) OCC /LPF 06/17/20 01:50 Urine Ascorbic Acid NEGATIVE (NEGATIVE) 06/17/20 01:50 Impressions: Abdomen/Pelvis CT 06/16/20 23:49 IMPRESSION: 1. Multiple distended small bowel loops, consistent with at least a partial small bowel obstruction. Transition point is likely in the left lower quadrant. 2. No perforation or abscess. KUB X-Ray 06/16/20 23:51 IMPRESSION: No evidence of obstruction, the reported clinical concern. Chest X-Ray 06/16/20 23:54 IMPRESSION: No evidence of active intrathoracic disease. No adverse change Small Bowel X-Ray 06/17/20 00:00 IMPRESSION: Multiple dilated loops of small bowel with no contrast distally, possibly representing partial or complete bowel obstruction. KUB X-Ray 06/17/20 12:00 IMPRESSION: Nasoenteric tube tip overlies stomach. Persistent gas dilated small bowel loops within the left hemiabdomen compatible with obstruction. KUB X-Ray 06/18/20 06:00 IMPRESSION: MINIMAL SMALL BOWEL DILATION. ORAL CONTRAST HAS NOW PROGRESSED THROUGH THE BOWEL AND IS PRESENT IN THE COLON AND RECTUM. KUB X-Ray 06/19/20 06:00 IMPRESSION: The oral contrast has continued to migrate and at the moment is predominantly within the sigmoid colon and rectum. There are no dilated loops of small bowel. Plan Plan of Treatment: Follow-up with PCP Follow-up with GI Follow-up with general surgery Lactulose and MiraLAX to consistently have 1-2 bowel movements per day Time Spent: Greater than 30 Minutes Stroke Is this a Stroke Patient?: No Acute Heart Failure - Is this a Heart Failure Patient?: No
== END 2020-06-19 18:10 | disposition home or self-care (01) | DRG 389 ==
LOC: ER 23:14 → EH 06-17 02:27 → 5 06-17 04:16
PROVIDERS: ADMIT Internal Medicine; ATTEND Internal Medicine
DX: K56.600 Partial intestinal obstruction, unspecified as to cause (principal); J44.1 Chronic obstructive pulmonary disease with (acute) exacerbation; K21.9 Gastro-esophageal reflux disease without esophagitis; E78.00 Pure hypercholesterolemia, unspecified; I50.9 Heart failure, unspecified; I11.0 Hypertensive heart disease with heart failure; J45.909 Unspecified asthma, uncomplicated; E11.9 Type 2 diabetes mellitus without complications; F32.9 Major depressive disorder, single episode, unspecified; R10.32 Left lower quadrant pain
CPT/HCPCS: 36415; 71045; 74018; 74177; 74250; 80053; 81001; 82962; 83605; 83690; 83735; 84100; 85025; 85610; 85730; 87040; 93005; 93010; 96361; 96374; 96375; 99285; J0696; J1170; J1644; J1815; J1885; J2270; J2405; J2550; J3490; J7030; J7042; S0028

== ENCOUNTER → 2020-06-27 | Outpatient (CLI) | payer MEDICARE ==
[2020-06-27 15:54] LABS: ALBUMIN 3.6 g/dL (3.5-5.0); ALKALINE PHOSPHATASE 115 U/L (38-126); ANION GAP 9 (5-19); ASPARTATE AMINO TRANSFERASE 24 U/L (14-36); BILIRUBIN,DIRECT 0.3 mg/dL (0.0-0.4); BILIRUBIN,TOTAL 0.3 mg/dL (0.2-1.3); BLOOD UREA NITROGEN 10 mg/dL (7-20); CALCIUM 8.9 mg/dL (8.4-10.2); CARBON DIOXIDE 23 mmol/L (22-30); CHLORIDE 107 mmol/L (98-107); CHOLESTEROL 173.31 mg/dL (0-200); GLUCOSE 112 mg/dL (75-110); TOTAL PROTEIN 6.4 g/dL (6.3-8.2); TRIGLYCERIDES 149 mg/dL (<150)
[2020-06-27 16:09] LABS: DIRECT LDL 109 mg/dL (<100)
== END ==
LOC: OD 14:41
PROVIDERS: ATTEND Physician Assistant
DX: E78.00 Pure hypercholesterolemia, unspecified (principal); I10 Essential (primary) hypertension; Z79.899 Other long term (current) drug therapy
CPT/HCPCS: 36415; 80048; 80061; 80076

== ENCOUNTER → 2020-07-03 | Outpatient (CLI) | payer MEDICARE ==
--- NOTE | 2020-07-04 16:39 | WOMENS IMAGING REPORT ---
EXAM DESCRIPTION: 3D SCREENING MAMMO BILAT IMAGES COMPLETED DATE/TIME: 07/03/2020 12:29 pm REASON FOR STUDY: Z12.31 ENCNTR SCREEN MAMMOGRAM FOR MALIGNANT NEOPLASM OF BREAST Z12.31 ENCNTR SCR EEN MAMMOGRAM FOR MALIGNANT NEOPLASM OF SAUD COMPARISON: 2016, 2018 EXAM PARAMETERS: Views: Standard craniocaudal and mediolateral oblique views of each breast recorded using digital acquisition and breast tomosynthesis. Read with the assistance of CAD. .[facility] - R2 [employer] Version 2.4 LIMITATIONS: None. FINDINGS: No suspicious masses, suspicious calcifications or architectural distortion. No areas of c oncern. IMPRESSION: NEGATIVE MAMMOGRAM. BIRADS 1. BREAST DENSITY: a. The breasts are almost entirely fatty. BIRAD: ASSESSMENT: 1 NEGATIVE RECOMMENDATION: ROUTINE SCREENING Please continue yearly bilateral screening mammography/tomosynthesis in June 2021 COMMENT: The patient has been notified of the results by letter per MQSA requirements. Additional no tification policies are in place for contacting patient with suspicious or incomplete findings. Quality ID #[id number]: The [employer] recommends an annual screening mammogram for women aged 40 years or over. This facility utilizes a reminder system to ensure that all patients receive reminder letters, and/or direct phone calls for appointments. This includes reminders for routine scr eening mammograms, diagnostic mammograms, or other Breast Imaging Interventions when appropriate. Th is patient will be placed in the appropriate reminder system. TECHNICAL DOCUMENTATION: FINDING NUMBER: (1) ASSESSMENT: (1) JOB ID: [id number] 2010 [facility]- All Rights Reserved Reading location - IP/workstation name: [facility]
== END ==
LOC: WI 11:17
PROVIDERS: ATTEND Family Medicine
DX: Z12.31 Encounter for screening mammogram for malignant neoplasm of breast (principal)
CPT/HCPCS: 77063; 77067